=== PATIENT | female | born 1985 | race Caucasian/White ===

== ENCOUNTER 2016-06-06 13:41 | Emergency (ER) | payer OTHER ==
[~2016-06-06] VITALS: Ht 160 cm; Wt 104.0 kg
[2016-06-06 15:52] LABS: HEMATOCRIT 38.6 % (36.0-46.0); MCH 28.3 PG (29.0-34.0); MCHC 33.2 G/DL (30.0-36.0); MCV 85.4 FL (83-99); MEAN PLAT.VOLUME 9.5 uM^3 (9.5-12.4); PLATELET COUNT 334 K/uL (156-360); RBC DIS.WIDTH-CV 12.1 % (11.8-14.6); RED BLOOD COUNT 4.52 M/uL (3.80-5.20); WHITE BLOOD COUNT 13.8 K/uL (4.1-10.2)
[2016-06-06 16:06] LABS: CHLORIDE 108 mEq/L (99-109); POTASSIUM 3.9 mEq/L (3.7-5.4); SODIUM 138 mEq/L (136-147)
[2016-06-06 16:08] LABS: GLUCOSE 87 mg/dL (70-99)
[2016-06-06 16:09] LABS: ANION GAP 10 MEQ/L (2-14)
[2016-06-06 16:10] LABS: TOTAL BILIRUBIN 0.3 mg/dL (0.0-1.0)
[2016-06-06 16:11] LABS: ALKALINE PHOSPHATASE 69 IU/L (3-129)
[2016-06-06 16:12] LABS: GFR ESTIMATE (CALCULATED) > 59 mL/min/
[2016-06-06 16:13] LABS: UREA NITROGEN (BUN) 17 mg/dL (9-23)
[2016-06-06 16:23] LABS: QUANTITATIVE HCG < 4.0 MIU/ML
[2016-06-06 16:32] LABS: ADD MIUA? YES; BILIRUBIN NEGATIVE; BLOOD NEGATIVE; COLOR YELLOW ((YELLOW)); GLUCOSE (STRIP) NEGATIVE; KETONES NEGATIVE; LEUKOCYTES TRACE; NITRITE NEGATIVE; PROTEIN (STRIP) 30; SPECIFIC GRAVITY 1.029 (1.000-1.030); UROBILINOGEN 0.2 MG/DL (0.2-1.0)
[2016-06-06 16:50] LABS: BACTERIA RARE /HPF; EPITHELIAL CELLS 1+ /HPF; GRANULAR CASTS 0-5 /LPF; MUCUS 1+ /LPF; UCUL ADDED? NO; WHITE BLOOD CELLS 0-5 /HPF (0-5)
[2016-06-06] MEDS ORDERED: NAPROSYN500 MG PO (17:03)
[2016-06-06] MEDS ORDERED: FLOMAX0.4 MG PO (17:03)
[2016-06-06] MEDS ORDERED: ZOFRAN ODT4 MG PO (17:03)
[2016-06-06] MEDS ORDERED: LORTAB 5-325 M1 EACH PO (17:03)
[2016-06-06 17:21] VITALS: BP 130/89
== END 2016-06-06 17:23 | disposition home or self-care (01) ==
LOC: EME 13:41
PROVIDERS: Nurse Practitioner Family
DX: N13.2 Hydronephrosis with renal and ureteral calculous obstruction (principal); Z87.442 Personal history of urinary calculi; Z87.891 Personal history of nicotine dependence
CPT/HCPCS: 74020; 76770; 80053; 81003; 84702; 85027; 99281; 99284

== ENCOUNTER 2017-05-22 12:54 | Emergency (ER) | payer OTHER ==
[~2017-05-22] VITALS: Ht 160 cm; Wt 108.6 kg
[~2017-05-22 12:54] MED LIST: FLOMAX0.4 MG PO; LORTAB 5-325 M1 EACH PO; NAPROSYN500 MG PO; ZOFRAN ODT4 MG PO
[2017-05-22 13:29] LABS: HEMATOCRIT 40.5 % (36.0-46.0); HEMOGLOBIN 14.2 G/DL (11.9-15.5); MCH 29.4 PG (29.0-34.0); MCHC 35.1 G/DL (30.0-36.0); MCV 83.9 FL (83-99); PLATELET COUNT 285 K/uL (156-360); RBC DIS.WIDTH-CV 12.1 % (11.8-14.6); RBC DIS.WIDTH-SD 36.9 % (39-53); RED BLOOD COUNT 4.83 M/uL (3.80-5.20)
[2017-05-22 13:38] LABS: CHLORIDE 110 mEq/L (99-109); POTASSIUM 3.9 mEq/L (3.7-5.4); SODIUM 140 mEq/L (136-147)
[2017-05-22 13:39] LABS: GLUCOSE 106 mg/dL (70-99)
[2017-05-22 13:43] LABS: CREATININE 0.8 mg/dL (0.6-1.3); GFR ESTIMATE (CALCULATED) > 59 mL/min/
[2017-05-22 13:44] LABS: UREA NITROGEN (BUN) 11 mg/dL (9-23)
[2017-05-22 13:51] LABS: TROP-I INTERPRETATION NEGATIVE; TROPONIN-I < 0.01 ng/mL (0.0-0.30)
[2017-05-22 15:15] LABS: D-DIMER ELISA < 150.00 ng/mLDDU (<230)
[2017-05-22 15:27] LABS: ALBUMIN 4.1 g/dL (3.2-4.8)
[2017-05-22 15:30] LABS: TOTAL PROTEIN 7.5 g/dL (6.4-8.3)
[2017-05-22 15:32] LABS: TOTAL BILIRUBIN 0.3 mg/dL (0.0-1.0)
[2017-05-22 15:33] LABS: ALKALINE PHOSPHATASE 54 IU/L (3-129)
[2017-05-22 15:35] LABS: AST (GOT) 39 IU/L (2-34); DIRECT BILIRUBIN 0.1 mg/dL (0.0-0.3)
[2017-05-22 15:36] LABS: ALT (GPT) 49 IU/L (3-49)
[2017-05-22 15:37] LABS: LIPASE 46 U/L (1.0-51.0)
[2017-05-22 17:00] VITALS: BP 131/82
== END 2017-05-22 17:01 | disposition home or self-care (01) ==
LOC: EME 12:54
PROVIDERS: Physician Assistant
DX: R07.89 Other chest pain (principal); Z87.891 Personal history of nicotine dependence; Z87.442 Personal history of urinary calculi; Z85.850 Personal history of malignant neoplasm of thyroid; Z88.5 Allergy status to narcotic agent
CPT/HCPCS: 71046; 80048; 80076; 83690; 84484; 85027; 85379; 93005; 99281; 99284